=== PATIENT | male | born 1965 | race Caucasian/White ===

== ENCOUNTER → 2018-07-25 | Outpatient (CLI) | payer BC ==
[~2018-07-25] MED LIST: Ativan1 MG PO; LEVO750 PO; LORA.5 PO; ONDA4 PO; ONDA8 PO; PREG25 PO; Stool Softener100 MG PO; TAMS.4ER PO
== END | disposition home or self-care (01) ==
LOC: LAB SHORT 16:54 → LAB EV 16:54
DX: B37.0 Candidal stomatitis (principal)
CPT/HCPCS: 87070

== ENCOUNTER → 2021-06-17 | Outpatient (CLI) | payer BC ==
[2021-06-17 14:51] LABS: Bilirubin, Urine Neg (Neg); Blood, Urine Neg (Neg); Glucose Qualitative, Urine Neg (Neg); Ketones, Urine Neg (Neg); Leukocyte Esterase, Urine Neg (Neg); Nitrite, Urine Neg (Neg); Protein, Urine Neg (Neg); Urobilinogen, Urine NORM (Normal)
[2021-06-17 15:03] LABS: Appearance, Urine Clear (Clear); Color, Urine Pale Yellow (P-Yellow)
== END ==
LOC: LAB SHORT 08:45
PROVIDERS: Hospitalist
DX: R10.2 Pelvic and perineal pain (principal); N42.81 Prostatodynia syndrome
CPT/HCPCS: 81003

== ENCOUNTER → 2021-12-04 | Outpatient (CLI) | payer BC ==
[2021-12-06 17:08] LABS: FATS, NEUTRAL Normal (.); FATS, TOTAL Normal (.)
== END | disposition home or self-care (01) ==
LOC: LAB SHORT 08:37
PROVIDERS: Internal Medicine Endocrinology, Diabetes & Metabolism
DX: R19.5 Other fecal abnormalities (principal)
CPT/HCPCS: 82705; 89055

== ENCOUNTER 2024-06-04 17:51 | Emergency (ER) | payer OTHER, BC ==
[~2024-06-04] VITALS: Ht 165.1 cm; Wt 68.0 kg
[~2024-06-04 17:51] MED LIST changes: +Cyclobenzaprine5 MG PO; +ERGO400 PO; +MULVITA PO; +TIZA4 PO; +TRAZ100 PO
[2024-06-04] MEDS ORDERED: Lactated Ringer's 1,000 ML IV ONE (18:00)
[2024-06-04] MEDS ORDERED: HYDROmorphone HCl/Pf 1MG SYR IV ONE (18:00)
[2024-06-04] MEDS ORDERED: Diphth,Pertuss(Acell),Tet Vac 0.5 ML VIAL IM ONE (18:05)
[2024-06-04] MEDS ORDERED: Ondansetron HCl 2 MG / ML 2ML Vial ONE (18:13)
[2024-06-04] MEDS ORDERED: Ondansetron HCl 2 MG / ML 2ML Vial IV ONE (18:15)
[2024-06-04] MEDS ORDERED: FentaNYL Citrate 50 MCG/ML 2 ML Injection IV ONE (18:30)
[2024-06-04 18:32] LABS: BASOPHILS ABSOLUTE AUTO 0.04 K/mm3 (0.00-0.23); BASOPHILS PERCENT AUTO 1 % (0-2); EOSINOPHILS ABSOLUTE AUTO 0.02 K/mm3 (0.00-0.68); EOSINOPHILS PERCENT AUTO 0 % (0-6); Hematocrit 40.1 % (37.0-53.0); Hemoglobin 14.8 g/dL (13.5-17.5); IMMATURE GRAN ABSOLUTE AUTO 0.04 K/mm3 (0.00-0.10); IMMATURE GRAN PERCENT AUTO 1 % (0-1); LYMPHOCYTES ABSOLUTE AUTO 2.03 K/mm3 (0.84-5.20); LYMPHOCYTES PERCENT AUTO 30 % (21-46); MONOCYTES ABSOLUTE AUTO 0.51 K/mm3 (0.16-1.47); MONOCYTES PERCENT AUTO 8 % (4-13); Mean Corpuscular HGB 33.3 pg (26.0-34.0); Mean Corpuscular HGB Conc 36.9 g/dL (31.5-36.5); Mean Corpuscular Volume 90 fL (80-100); Mean Platelet Volume 9.7 fL (9.1-12.4); NEUTROPHILS ABSOLUTE AUTO 4.12 K/mm3 (1.96-9.15); NEUTROPHILS PERCENT AUTO 61 % (41-73); Platelet Count 218 K/mm3 (150-400); RDW Coefficient Variation 12.1 % (11.7-14.2); RDW Standard Deviation 39.8 fL (35.1-46.3); Red Blood Cell Count 4.44 M/mm3 (4.30-5.90); White Blood Cell Count 6.76 K/mm3 (4.00-11.30)
--- NOTE | 2024-06-04 18:37 | NUR ---
"Spiritual Care | Call Back Pt. is in ED26, alex has been taken for CT scans. Meet Pts. spouse when she arrives, and take her to the consult room. Prayed with spouse and facilitated life updates until the DrTika came and updated. Took spouse to bedside where Pt. was responsive. Facilitate encouragement and word of pastoral care. Prayed with Pt. Gave spouse this licensed appraiser's direct number. Pt. and spouse verbalize gratitude for the spiritual care visit."
[2024-06-04 18:42] LABS: Albumin, Blood 4.4 g/dL (3.4-5.0); Albumin/Globulin Ratio 1.6 (0.8-1.8); Bilirubin, Total 0.6 mg/dL (0.1-1.0); Bun/Creatinine Ratio 15.4 (12.0-20.0); Calcium, Blood 9.6 mg/dL (8.5-10.1); Creatinine, Blood 0.85 mg/dL (0.60-1.20); Globulin, Blood 2.7 g/dL (2.2-4.0); Potassium, Blood 3.3 mmol/L (3.5-5.5); Total Protein, Blood 7.1 g/dL (6.4-8.2)
[2024-06-04 18:47] LABS: International Normalized Ratio 1.02; Prothrombin Time Results 10.9 Sec (9.7-11.5)
[2024-06-04] MEDS ORDERED: Diazepam 5 MG / ML 2ML SYR IV ONE (19:00)
[2024-06-04 20:03] VITALS: BP 162/93
[2024-06-04] MEDS ORDERED: LIDO700A20 TOP (20:06)
[2024-06-04] MEDS ORDERED: Robaxin750 MG PO (20:06)
[2024-06-04] MEDS ORDERED: RX Prepack 6 Tabs Oxycodone 5mg UD ONE (20:10)
[2024-06-04] MEDS ORDERED: OxyCODONE HCL 5 MG TAB PO ONE (21:05)
== END 2024-06-04 21:21 | disposition home or self-care (01) ==
LOC: ER 17:51
PROVIDERS: Student in an Organized Health Care Education/Training Program
DX: S22.20XA Unspecified fracture of sternum, initial encounter for closed fracture (principal); S60.812A Abrasion of left wrist, initial encounter; M54.2 Cervicalgia; V89.2XXA Person injured in unspecified motor-vehicle accident, traffic, initial encounter
CPT/HCPCS: 70450; 71045; 71260; 72125; 73110; 74177; 80053; 83735; 84484; 85025; 85610; 85730; 86850; 86900; 86901; 90471; 90715; 93005; 93010; 96374-59; 96375; 99285-25; A9270; J1171; J2405; J3010; J3360; J7120; Q9967